=== PATIENT | male | born 1955 | race Caucasian/White ===

== ENCOUNTER → 2018-10-12 | Outpatient (CLI) | payer OTHER | END | disposition home or self-care (01) | LOC: RAH 11:04 | PROVIDERS: ATTEND Family Medicine | DX: M47.22 Other spondylosis with radiculopathy, cervical region (principal); M48.02 Spinal stenosis, cervical region | CPT/HCPCS: 72141 ==

== ENCOUNTER → 2018-12-19 | Outpatient (CLI) | payer OTHER | END | disposition home or self-care (01) | LOC: RAH 14:34 | PROVIDERS: ATTEND Family Medicine | DX: M19.012 Primary osteoarthritis, left shoulder (principal); M25.712 Osteophyte, left shoulder | CPT/HCPCS: 73221 ==

== ENCOUNTER 2019-01-25 09:49 | Day surgery (SDC) | payer OTHER ==
[2019-01-22 09:51] VITALS: BP 145/97
[2019-01-22 09:57] LABS: CREATININE 0.9 mg/dL (0.5-1.5); POTASSIUM 4.1 mmol/L (3.5-5.1)
[2019-01-22 10:03] LABS: INR 1.01 (0.85-1.15); PARTIAL THROMBOPLASTIN TIME 28.9 SEC (26.3-35.5); PROTHROMBIN TIME 10.6 SEC (9.6-11.6)
--- NOTE | 2019-01-22 10:23 | NUR ---
EKG ABNORMAL EKG REPORTED TO DR. JORGE. NO FURTHER ORDERS GIVEN OK TO PROCEED WITH SX
[2019-01-25] VITALS (15 sets, daily range): BP systolic 114–165; BP diastolic 71–94
[~2019-01-25] VITALS: Ht 175.3 cm; Wt 77.8 kg
[2019-01-25] MEDS: CEFAZOLIN SODIUM 1 GM VIAL IVP ONE ×2 (08:00→12:45)
[~2019-01-25 09:49] MED LIST: ESOM40CA54 PO; LACTATED RINGERS 1000ML 1,000 ML IV SCH
[2019-01-25] MEDS ORDERED: CEFAZOLIN SODIUM 1 GM VIAL ONE (11:30)
[2019-01-25] MEDS ORDERED: PROPOFOL 10 MG/ML 20ML VIAL IV ONE (12:25)
[2019-01-25] MEDS ORDERED: LIDOCAINE PF 2% 5ML ABBOJECT ONE ×2 (12:25→12:28)
[2019-01-25] MEDS ORDERED: FENTANYL CITRATE PF 50 MCG/1 ML 2ML VIAL ONE (12:26)
[2019-01-25] MEDS ORDERED: MIDAZOLAM HCL 1 MG/ML 2ML VIAL ONE (12:26)
[2019-01-25] MEDS ORDERED: ONDANSETRON HCL 4 MG/2 ML VIAL ONE (12:27)
[2019-01-25] MEDS ORDERED: ROCURONIUM 10MG/1ML SYR 10 MG/ML ML ONE ×2 (12:28→13:13)
[2019-01-25] MEDS ORDERED: ROPIVACAINE 0.5% 5MG/ML 30ML IJ ONE (12:38)
[2019-01-25] MEDS ORDERED: NEOSTIGMINE 5MG/5ML SYR IV ONE (13:40)
[2019-01-25] MEDS ORDERED: GLYCOPYRROLATE 1 MG/5 ML SYRINGE ONE (13:40)
[2019-01-25] MEDS ORDERED: HYDRALAZINE HCL 20 MG/ML VIAL ONE (14:25)
--- NOTE | 2019-01-25 15:00 | NUR ---
post received new pt from [facility], s/p left shoulder arthroscopy, dressing to site dry and intact, arm sling in place. neurovascular checks wnl. vs stable on arrival
--- NOTE | 2019-01-25 15:30 | NUR ---
dc dc instructions given to pt spouse as per patient and spouse dr. blair gave prescription for tramadol/ motrin prior to surgery . patient awake and alert.
--- NOTE | 2019-01-25 15:38 | NUR ---
dc pt dc home via [place],no distress noted. denied any pain or discomforts. pt accompanied by spouse. left shoulder dressing dry and intact, arm sling in place
== END 2019-01-25 15:38 | disposition home or self-care (01) ==
LOC: DAH 09:49
PROVIDERS: ATTEND Orthopaedic Surgery
DX: M75.112 Incomplete rotator cuff tear or rupture of left shoulder, not specified as traumatic (principal); M11.212 Other chondrocalcinosis, left shoulder; M19.212 Secondary osteoarthritis, left shoulder; M25.812 Other specified joint disorders, left shoulder; M75.52 Bursitis of left shoulder; I10 Essential (primary) hypertension; K21.9 Gastro-esophageal reflux disease without esophagitis; F17.210 Nicotine dependence, cigarettes, uncomplicated; Z88.3 Allergy status to other anti-infective agents; Z79.899 Other long term (current) drug therapy; Z72.89 Other problems related to lifestyle; Z98.890 Other specified postprocedural states; Z83.3 Family history of diabetes mellitus
CPT/HCPCS: 29826; 29827; 36415; 64415; 76942; 80048; 85610; 85730; 93005; A4215; A4221; A4222; A4223; A4452; A4565; A4649 ×4; A4930 ×2; A5120; A6260; C1713 ×2; J0360; J0690; J2001 ×2; J2250; J2405; J2704; J2710; J2795; J3490; J7120 ×2; J3010